=== PATIENT | female | born 1935 | race Caucasian/White ===

== ENCOUNTER 2016-08-16 08:43 | Outpatient (CLI) | payer MEDICARE, OTHER ==
[2013-10-11 15:32] VITALS: BP 156/78
[~2016-08-16 08:43] MED LIST: BUPIVACAINE HCL/EPINEPHRINE/PF 0.25% VIAL IM ONE; BUPIVACAINE HCL/PF 2.5 MG/ML 10ML VIAL IV ONE; Lidocaine 1% 5ml(IM or SUTURE)(PAIN CLINIC) ONE; TRIAMCINOLONE ACETONID 40MG/ML VIAL ONE
--- NOTE | 2016-08-16 14:46 | HISTORY AND PHYSICAL REPORT ---
REFERRING PHYSICIAN: Dr. Angélica Dang Dear Dr. Dang: HISTORY OF PRESENT ILLNESS: I had the opportunity of seeing Patricia Augustine today as an outpatient at [facility]. As you are aware, Patricia is a delightful 80-year-old white female that I treated several years ago for neck pain and occipital neuralgia. At that time, she was living in [place], [place]. She has recently moved from [place], [place], and she has had return of cervicalgia, neck pain, and headaches. She tells me at that time that the cervical facets, which were done with sedation, with CT-guided occipital blocks were helpful at controlling her pain but it has now returned. 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 She is not on any blood thinners except for 81 mg of aspirin. PAST MEDICAL HISTORY: 1. History of frequent migraine headaches. 2. CVA. 3. TIA. 4. High cholesterol. 5. Hypertension. 6. RA. 7. Irritable bowel. 8. Memory loss status post CVA. 9. Depression. 10. Chronic pain. PAST SURGICAL HISTORY: Right knee arthroscopy in 2012. CURRENT DAILY MEDICATIONS: 1. Bentyl 20 mg b.i.d. 2. Metoprolol 50 mg daily. 3. Lipitor 20 mg daily. 4. Topamax 100 mg daily. 5. Clonazepam 0.5 mg daily. 6. Vitamin D3, 5000 units daily. 7. Lactobacillus OTC daily. 8. Tramadol 100 mg p.o. every 4 hours p.r.n. 9. Lomotil b.i.d, p.r.n. 10. Oxybutynin 5 mg daily, p.r.n. 11. Claritin daily. ALLERGIES: 1. Remicade causing hives and tongue swelling. 2. Penicillin causing hives and vomiting. 3. Demerol causing hives and vomiting. 4. Savella causing ulcer. 5. Prilosec causing a cough and cardiac function problems. 6. Methotrexate causing hair loss. 7. Cipro, unknown reaction. 8. Amitriptyline causing over sedation. SOCIAL HISTORY: She has never smoked. She uses alcohol rarely. She denies recreational drug use. FAMILY HISTORY: Family history of heart disease. REVIEW OF SYSTEMS: In the past month or so, she reports a weight loss, feeling depressed, feeling anxious, and headaches. Her pain is worsened with weather changes and nothing seems to improve her pain. PHYSICAL EXAMINATION: Vital Signs: BP: 155/75, P: 68, R: 20, oxygen saturation is 98% on room air. General: The patient is well nourished, well developed, and in no apparent distress. Awake, alert, and oriented. HEENT: Pupils are equal, round, and reactive to light and accommodation. Extraocular movements intact. No facial droop. Neck: There is full range of motion of the cervical spine. No evidence of adenopathy. Thyroid is nontender, no enlarged. Carotids are without bruits. Chest: Clear to auscultation bilaterally. Normal. Chest excursion. Heart: Regular rate and rhythm without murmur. Abdomen: Benign. Normoactive bowel sounds. Motor/sensory: Intact in the upper and lower extremities. Moves all extremities freely. Strength is 5/5 and equal in the upper extremities. Back: There is limited range of motion of the cervical spine. There is reproducible tenderness over the occipital plane and the cervical facets. ASSESSMENT: Occipital neuralgia. PLAN: She has eaten this morning; and therefore, I am going to plan on repeating post- occipital blocks without sedation, and I will follow her up and consider cervical facet medial branch blocks with C2 ganglion if necessary. She is in agreement today and we will proceed. Dr. Dang, thank you very much for allowing me to take part in the care of this nice lady. I appreciate the opportunity to take part in the care of your patients. cc: Dr. Laurence ABRAMS
--- NOTE | 2016-08-16 14:57 | OCCIPITAL NB FLUORO ---
REFERRING PHYSICIAN: Dr. Angélica Dang PREOPERATIVE DIAGNOSIS: Occipital neuralgia. POSTOPERATIVE DIAGNOSIS: Occipital neuralgia. PROCEDURE: Bilateral post-occipital nerve blocks without sedation. DESCRIPTION OF PROCEDURE: The risks and benefits of the procedure were explained to the patient, including the risk of infection, bleeding, nerve injury and seizure. Furthermore, I discussed the risk of steroid exposure causing hyperglycemia, hypertension, osteoporosis, and increased infectious risks. The patient understood the risks and agreed to proceed. Consent was obtained. The patient was placed in the prone position on the procedure table and a sterile prep and drape were applied. A 1% lidocaine local anesthetic skin wheal was raised and at the insertion of the splenius capitis and semispinalis capitis, a 25-gauge needle was advanced to just inferior to the nuchal line with an injection of triamcinolone and lidocaine mixed with bupivacaine. In this exact same fashion, the procedure was then repeated on the contralateral side. The patient tolerated the procedure well. There were no apparent complications. She was discharged home in good condition. ASSESSMENT: Occipital neuralgia. PLAN: Bilateral post-occipital nerve blocks. FOLLOW UP: I will plan on following her up for possible facets. I would consider obtaining a new MRI study. Dr. Dang, thank you very much for allowing me to take part in the care of this nice lady. cc: Dr. Laurence ABRAMS
== END 2016-08-16 08:44 ==
LOC: OUT 08:43
PROVIDERS: ATTEND Anesthesiology Pain Medicine
DX: M54.81 Occipital neuralgia (principal)
CPT/HCPCS: J3301; J3490; 64450; 99214; G0463

== ENCOUNTER 2016-08-22 08:45 | Outpatient (CLI) | payer MEDICARE, OTHER ==
[2013-10-11 15:32] VITALS: BP 156/78
--- NOTE | 2016-08-22 13:39 | Diagnostic Imaging Report ---
DEMETRIUS CARPIO~ [facility] [address] [facility] [address] [place], [place]. [address] ~ ~ ~ ~ Report Submission Date: Aug 22, 2016 12:36:11 PM CDT Patient ~ Study Name: SISI MARTINEZ ~ Date: Aug 22, 2016 8:57:22 AM CDT ~ Modality Type: MR Gender: F ~ Description: MRI C SPINE W/O CONTRAST : 33 ~ Institution: [facility] Physician: DEMETRIUS CARPIO ~ ~ ~ ~ Magnetic resonance imaging of the cervical spine without contrast History: Posterior neck pain Findings: Routine sagittal and axial images of the cervical spine are obtained without contrast. No comparisons are available. The bone marrow signal is normal. Age appropriate brain atrophy is noted. The cervicomedullary junction and cervical spinal cord exhibit normal signal. Craniocervical junction: Unremarkable. C1/C2: Mild bilateral facet arthropathy. C2/C3: Moderate left facet arthropathy. C3/4: Moderate left facet arthropathy C4/C5: Moderate right and mild left facet arthropathy, minimal posterior disc bulging, and negligible degenerative anterolisthesis. C5/C6: Mild disc space narrowing, moderate posterior disc osteophyte complex formation, mild left facet arthropathy, bilateral uncovertebral spurring, bilateral foraminal stenosis, central canal stenosis, and mild cord impingement. C6/C7: Moderate disc space narrowing, moderate posterior disc osteophyte complex formation, minimal degenerative retrolisthesis, left greater than right uncovertebral spurring, broad based posterior central disc protrusion, bilateral foraminal stenosis, central canal stenosis, and cord impingement. There may be a small posterior central disc extrusion with slight caudad migration. C7/T1: Moderate left facet arthropathy. Impression: 1. Moderate C5/C6 spondylosis with bilateral foraminal stenosis, central canal stenosis, and cord impingement. 2. Moderate C6/C7 spondylosis with bilateral foraminal stenosis, central canal stenosis, cord impingement, and possibly a small posterior central disc extrusion. 3. Additional mild multilevel spondylosis as described. ~ Electronically signed on Aug 22, 2016 12:36:11 PM CDT by: Tavon ABRAMS
== END 2016-08-22 08:46 ==
LOC: RAD 08:45
PROVIDERS: ATTEND Anesthesiology Pain Medicine
DX: M54.2 Cervicalgia (principal)
CPT/HCPCS: 72141

== ENCOUNTER 2016-09-13 08:44 | Outpatient (CLI) | payer MEDICARE, OTHER ==
[2013-10-11 15:32] VITALS: BP 156/78
[~2016-09-13 08:44] MED LIST changes: +0.9 % SODIUM CHLORIDE PF 10 ML VIAL IJ ONE; -BUPIVACAINE HCL/EPINEPHRINE/PF 0.25% VIAL IM ONE; -BUPIVACAINE HCL/PF 2.5 MG/ML 10ML VIAL IV ONE
--- NOTE | 2016-09-14 12:09 | CERVICAL ESI WITH FLUORO ---
REFERRING PHYSICIAN: Dr. Angélica Dang SUBJECTIVE: I had the opportunity of following up with Patricia Luna today as an outpatient at [facility] [place] [facility]. This is a very nice 81-year-old white female who presented with neck pain and occipital neuralgia. MRI was performed of the cervical spine at [facility] [place] [facility] on August 22, and it is significant for multi-level cervical spondylosis and C5-C6 and C6-C7 cervical stenosis causing impingement of the cervical cord. She does not have sylvia neurogenic claudication symptoms in her arms, however, she does have neck pain and headache. She said the headache resolved with a simple post-occipital block but it is now reoccurring. The neck pain never improved. Her range of motion as I examine her today is somewhat limited but fairly normal and I am going to plan on placing a palliative cervical epidural steroid injection at C7- T1. I will follow her up in a month and see how she does. If she is not getting significant improvement, I would consider performing a facet medial branch blocks and a C2 ganglion injection. However, I think this is a product of the cervical stenosis. Plan today for a cervical epidural steroid injection with fluoroscopy. PROCEDURE: Left C7-T1 epidural steroid injection with fluoroscopic guidance. DESCRIPTION OF PROCEDURE: The risks and benefits were discussed with the patient, including the risks of infection, bleeding, nerve injury including paralysis, and headache. Furthermore , I discussed the risk of steroid exposure causing hyperglycemia, hypertension, osteoporosis, or increased infectious risks. The patient understood these risks and agreed to proceed. Consent was obtained. The patient was placed prone on the fluoroscopy table with a pillow underneath the chest to afford slight anterior flexion of the cervical spine. The patient' s back of the neck was cleaned and a sterile drape was applied. A 20-gauge thin-wall Tuohy epidural needle was inserted with a left paramedian approach at the C7-T1 level. The position of the needle was verified with AP and lateral fluoroscopic views. The needle was advanced with a normal saline yjbn-uv-cpnawogcpe technique until zsst-na-iprucuoxou was obtained. On obtaining gvbn-sp-gyttlqtbbf to normal saline it was verified that there was no aspiration of CSF or blood. At this point, Omnipaque 240 myelogram dye was injected into the cervical epidural space. It was verified with fluoroscopic views that the dye was located within the epidural space in the desired distribution. Triamcinolone acetate and 1% lidocaine was injected into the cervical epidural space. The stylet was replaced in the needle and the needle was removed from the neck. The neck was cleaned free and a bandage was applied over the injection site. Bilateral post-occipital blocks were then performed with triamcinolone and 1% lidocaine mixed with preservative-free saline. The patient tolerated the procedure well and was monitored afterwards for a total of 20 minutes during which time the vital signs remained stable and no adverse sequelae were experienced. The patient was discharged home in good condition. Prior to discharge the patient was given discharge instructions. ASSESSMENT: Cervical intervertebral disk disorder. PLAN: Left C7-T1 epidural steroid injection with fluoroscopic guidance. FOLLOW UP: Follow up in 1 month. cc: Dr. Angélica ABRAMS
== END 2016-09-13 08:45 ==
LOC: OUT 08:44
PROVIDERS: ATTEND Anesthesiology Pain Medicine
DX: M50.33 Other cervical disc degeneration, cervicothoracic region (principal)
CPT/HCPCS: J3301; Q9966; 99213; G0463

== ENCOUNTER 2016-09-30 13:10 | Outpatient (CLI) | payer MEDICARE, OTHER ==
[2013-10-11 15:32] VITALS: BP 156/78
== END 2016-09-30 13:11 ==
LOC: LAB 13:10
PROVIDERS: ATTEND Family Medicine
DX: E55.9 Vitamin D deficiency, unspecified (principal)
CPT/HCPCS: 36415; 82306

== ENCOUNTER 2016-10-11 08:07 | Outpatient (CLI) | payer MEDICARE, OTHER ==
[2013-10-11 15:32] VITALS: BP 156/78
--- NOTE | 2016-10-12 10:46 | PAIN CLINIC PROGRESS NOTES ---
REFERRING PHYSICIAN: Dr. Angélica Dang REASON FOR VISIT: I had the opportunity of following up with Patricia RyanBailey today at [facility] [place] [facility]. This is a delightful 81-year-old white female who presented with neck pain, cervicalgia, and occipital neuralgia. MRI revealed a cervical C5-C6 and C6-C7 spondylosis and stenosis and impinging on the spinal cord. I gave her a left C7-T1 epidural steroid injection with bilateral occipital blocks and her symptoms have resolved. She says she has not had any further neck pain or headache and doing quite well. ASSESSMENT: 1. C5-C6 and C6-C7 cervical spondylosis and stenosis. 2. Occipital neuralgia. PLAN: I have spoken with her and her daughter about the underlying pathology and that she should avoid prolonged overhead work, including lifting and twisting. I will see her back if her symptoms should worsen or reoccur. cc: Dr. Angélica ABRAMS
== END 2016-10-11 08:08 ==
LOC: OUT 08:07
PROVIDERS: ATTEND Anesthesiology Pain Medicine
DX: M47.812 Spondylosis without myelopathy or radiculopathy, cervical region (principal); M48.02 Spinal stenosis, cervical region; M54.81 Occipital neuralgia
CPT/HCPCS: 99214; G0463

== ENCOUNTER 2017-01-04 07:55 | Outpatient (CLI) | payer MEDICARE, OTHER ==
[2013-10-11 15:32] VITALS: BP 156/78
[2017-01-04 08:38] LABS: eGFR (African) > 60; eGFR (Non-African) > 60
== END 2017-01-04 07:56 ==
LOC: LAB 07:55
PROVIDERS: ATTEND Family Medicine
DX: E78.2 Mixed hyperlipidemia (principal)
CPT/HCPCS: 36415; 80053; 80061

== ENCOUNTER 2017-04-26 14:06 | Outpatient (CLI) | payer MEDICARE, OTHER ==
[2013-10-11 15:32] VITALS: BP 156/78
[~2017-04-26 14:06] MED LIST changes: +BUPIVACAINE HCL/PF 2.5 MG/ML 10ML VIAL IV ONE
--- NOTE | 2017-04-27 14:00 | CERVICAL ESI WITH FLUORO ---
SUBJECTIVE: I had the opportunity of following up with Patricia Augustine today as an outpatient at [facility]. This is a delightful 81-year- old white female whom I treated last October for neck pain. She said that she did very well after a cervical epidural steroid injection with trigger points at the post occiput. She said she started doing exercises for arthritis and her symptoms are now reoccurring and that she has constant neck pain, headaches, and cannot get out of bed. She has a history of cervical degenerative disk disease and disk protrusion. I plan to day to repeat a C7-T1 epidural steroid injection with post occipital trigger point block and see how she does. She is in agreement today and we will proceed. PROCEDURE: Left C7-T1 epidural steroid injection with post occipital trigger point block under fluoroscopic guidance. DESCRIPTION OF PROCEDURE: The risks and benefits were discussed with the patient, including the risks of infection, bleeding, nerve injury including paralysis, and headaches. Furthermore, I discussed the risk of steroid exposure causing hyperglycemia, hypertension, osteoporosis, or increased infectious risks. The patient understood these risks and agreed to proceed. Consent was obtained. The patient was placed prone on the fluoroscopy table with a pillow underneath the chest to afford slight anterior flexion of the cervical spine. The patient' s back of the neck was cleaned and a sterile drape was applied. A 23-gauge thin-wall Tuohy epidural needle was inserted with a left paramedian approach at the C7-T1 interspace level. The position of the needle was verified with AP and lateral fluoroscopic views. The needle was advanced with a normal saline qmxp-pd-dxfkuszlii technique until ktym-ff-nktkbammqj was obtained. On obtaining eyqc-yc-ieblnmittv to normal saline it was verified that there was no aspiration of CSF or blood. Omnipaque 240 myelogram dye was injected into the cervical epidural space. It was verified with fluoroscopic views that the dye was located within the epidural space in the desired distribution. At this point , the medication was injected into the cervical epidural space. The stylet was replaced in the needle and the needle was removed from the neck. SECOND PROCEDURE: Following this, attention was then directed to the post occipital muscles and a local anesthetic block with 20 mg triamcinolone and 2 mL of 1% lidocaine mixed with Bupivacaine was placed bilaterally at the occipital margins at the nuchal line. The neck was cleaned and a bandage was applied over the injection site. The patient tolerated the procedure well and was monitored afterwards for a total of 20 minutes during which time the vital signs remained stable and no adverse sequelae were experienced. The patient was discharged home in good condition. Prior to discharge the patient was given discharge instructions. ASSESSMENT: 1. Cervical stenosis. 2. Post occipital pain. PLAN: Left C7-T1 epidural steroid injection with post occipital trigger point block under fluoroscopic guidance. FOLLOW UP: Return to clinic if problems develop or worsen. cc: Dr. Angélica ABRAMS
== END 2017-04-26 14:07 ==
LOC: OUT 14:06
PROVIDERS: ATTEND Anesthesiology Pain Medicine
DX: M48.02 Spinal stenosis, cervical region (principal); G58.8 Other specified mononeuropathies
CPT/HCPCS: 64450; 64479; 99214; G0463; J3301; J3490; Q9966

== ENCOUNTER 2017-05-04 14:56 | Inpatient (IN) | payer MEDICARE, OTHER ==
[2017-05-04] MEDS: ENOXAPARIN SODIUM 40 MG/0.4 ML DISP.SYRIN SQ SCH (18:06)
[2017-05-04 18:09] VITALS: BMI 20.6
--- NOTE | 2017-05-04 20:18 | History and Physical Report ---
History of Present Illnes - History of Present Illness Reason for Visit: Weakness History of Present Illness: Patient admitted from [facility] for SNF treatment of her weakness. She was admitted to [facility] with near syncopal episodes. Patient reports she was diagnosed with "inner ear infection." CT, CTA and MRI of brain normal. She was noted to have some tachycardia - consult by Dr. Villegas said it was sinus tach and put her back on her normal home dose of beta amanda. She had an UTI that grew out pansensitive E. Coli. Also found to have CAP. She was treated with Doxycycline and Cefdinir. She thought she had food sticking sensation in her throat. EGD normal but had dilatation anyway. Patient had reported allergy to rantidine and omeprazole so she was started on carafate. - Past Medical History Cardiac: CAD, HTN, [place], Hyperlipidemia, Other (LBBB) [employer]: CVA (see HPI), Migraine, Other (Tremor) Rheumatologic: Rheumatoid arthritis - Past Surgical History Past Surgical History: None - Past Family History Mother Family History: CAD, CVA, Father Family History: CAD, CVA, Brother 1 Family History: CAD Sister 1 Family History: CAD - Past Social History Smoke: No Alcohol: None Drugs: None Lives: With Family ( in [facility]) - Health Maintenance Health Maintenance: Influenza Vaccine, Pneumococcal Vaccine, Mammogram, Other ( zostavax) Influenza Vaccine: Current for this Influenza Season Pneumonia Vaccine: Yes Resuscitation Status: Resusciation Status Resuscitation Status Full Code Review of Systems - Review of Systems Constitutional: Weakness. negative: Fever Eyes: negative: pain ENT: negative: Ear Pain Respiratory: negative: Cough, Shortness of Breath Cardiovascular: negative: Chest Pain Gastrointestinal: negative: Nausea, Vomiting, Abdominal Pain Genitourinary: negative: Dysuria Musculoskeletal: negative: Neck Pain Skin: negative: Rash Neurological: Weakness - Medications/Allergies Allergies/Adverse Reactions: Allergies Allergy/AdvReac Type Severity Reaction Status Date / Time gabapentin Allergy Mild Unverified 01/03/17 09:29 ciprofloxacin HCl Allergy Verified 09/27/13 14:27 [From Cipro] divalproex sodium Allergy Verified 09/27/13 14:27 [From Depakote] erythromycin base Allergy Verified 09/27/13 14:27 [Erythromycin Base] infliximab [From Remicade] Allergy Verified 09/27/13 14:27 methotrexate Allergy Verified 09/27/13 14:27 metronidazole [From Flagyl] Allergy Verified 09/27/13 14:27 milnacipran HCl Allergy Verified 09/27/13 14:27 [From Savella] naproxen sodium [From Aleve] Allergy Verified 09/27/13 14:27 omeprazole [From Prilosec] Allergy Verified 09/27/13 14:27 Penicillins Allergy Verified 09/27/13 14:27 ranitidine HCl [From Zantac] Allergy Verified 09/27/13 14:27 valproic acid Allergy Verified 05/04/17 17:55 sertraline Allergy Uncoded 05/04/17 17:56 Home Medications: Home Medications Aspirin [Adult Low Dose Aspirin EC] 81 mg PO DAILY 05/04/17 Current Inpatient Medications: Current Inpatient Medications Enoxaparin Sodium (Lovenox) 40 mg SQ QD ORION Stop: 05/18/17 16:59 Last Admin: 05/04/17 18:06 Dose: 40 mg Exam - Exam Vital Signs: Vital Signs (72 hours) 05/04/17 16:11 Temperature 97.9 F Pulse Rate [ 64 Pulse ox] Respiratory 18 Rate Blood Pressure 131/57 [Right Arm] O2 Sat by Pulse 97 Oximetry General: Alert, Oriented to Person, Oriented to Place, Oriented to Time, Cooperative, No acute distress HEENT: Atraumatic, PERRLA, EOMI Neck: Normal Range of Motion Lungs: Clear to auscultation, Normal air movement, Speaks full Sentences Cardiovascular: Regular rate Abdomen: Normal bowel sounds, Soft, No tenderness Integumentary: Normal Extremities: No edema Neurological: Generalized Weakness Psych/Mental Status: Mental status NL, Mood NL, Appropriate Affect, Intact Judgment Assessment/Plan - Assessment/Plan (1) Weakness Status: Acute Current Visit: Yes Plan: Plan to admit patient to SNF for PT and OT. Lovenox for DVT prevention until up moving more. (2) Pneumonia Status: Acute Current Visit: Yes Qualifiers: Pneumonia type: due to unspecified organism Laterality: unspecified laterality Lung location: unspecified part of lung Qualified Code(s): J18.9 - Pneumonia, unspecified organism Plan: Patient to finish doxycycline and cefdinir tonight. (3) HTN (hypertension) Status: Chronic Current Visit: No Qualifiers: Hypertension type: essential hypertension Qualified Code(s): I10 - Essential (primary) hypertension Plan: Stable. (4) GERD without esophagitis Status: Acute Current Visit: Yes Plan: Stable. (5) CAD (coronary artery disease) Status: Chronic Current Visit: No Qualifiers: Coronary Disease-Associated Artery/Lesion type: [place] artery [place] vs. transplanted heart: [place] heart Associated angina: without angina Qualified Code(s): I25.10 - Atherosclerotic heart disease of [place] coronary artery without angina pectoris Assessment: Stable. VTE Assessment - RISK FACTOR SCORE VTE RISK FACTOR SCORES: AGE OVER 60 YEARS - RISK VTE LOW RISK: SCORE OF 1 OR LESS (RISK PROXIMAL DVT 0.4%) NO PROPHYLAXIS NEEDED
[2017-05-04] MEDS ORDERED: DOXYCYCLINE MONOHYDRATE 100 MG CAPSULE PO ONE (20:46)
[2017-05-04] MEDS ORDERED: TOPIRAMATE 100 MG PO SCH (21:00)
[2017-05-04] MEDS ORDERED: DICYCLOMINE HCL 20 MG TABLET PO SCH (21:00)
[2017-05-04] MEDS ORDERED: CEFDINIR 300 MG CAPSULE PO SCH (21:00)
[2017-05-04] MEDS ORDERED: DIPHENOXYLATE HCL/ATROPINE 1 EACH TABLET PO PRN (21:00)
[2017-05-04] MEDS: SUCRALFATE 1 GM TABLET PO SCH (21:19)
[2017-05-04] MEDS: TOPIRAMATE 50 MG TABLET PO SCH (21:19)
[2017-05-05] MEDS: SUCRALFATE 1 GM TABLET PO SCH ×4 (08:34→19:28)
[2017-05-05] MEDS: DICYCLOMINE HCL 20 MG TABLET PO PRN (08:35)
[2017-05-05] MEDS: TOPIRAMATE 50 MG TABLET PO SCH ×2 (08:36→19:28)
[2017-05-05] MEDS: HYDROXYZINE HCL 25 MG TABLET PO PRN ×2 (08:36→20:56)
[2017-05-05] MEDS: METOPROLOL SUCCINATE 50 MG TAB.ER.24H PO SCH (08:36)
[2017-05-05] MEDS: OXYBUTYNIN CHLORIDE 5 MG TABLET PO SCH ×3 (08:36→17:40)
[2017-05-05] MEDS ORDERED: Non-Formulary 1 EACH (Atorvastatin Calcium [Atorvastatin Calcium] 20 MG) PO SCH (09:00)
[2017-05-05] MEDS: ENOXAPARIN SODIUM 40 MG/0.4 ML DISP.SYRIN SQ SCH (17:41)
[2017-05-06] MEDS: SUCRALFATE 1 GM TABLET PO SCH ×4 (06:37→20:30)
[2017-05-06] MEDS: OXYBUTYNIN CHLORIDE 5 MG TABLET PO SCH ×3 (08:28→17:09)
[2017-05-06] MEDS: TOPIRAMATE 50 MG TABLET PO SCH ×2 (08:29→20:30)
[2017-05-06] MEDS: METOPROLOL SUCCINATE 50 MG TAB.ER.24H PO SCH (08:29)
[2017-05-06] MEDS: POLYETHYLENE GLYCOL 3350 17 GM POWD.PACK PO SCH (12:31)
[2017-05-06] MEDS: ENOXAPARIN SODIUM 40 MG/0.4 ML DISP.SYRIN SQ SCH (17:06)
[2017-05-07] MEDS: SUCRALFATE 1 GM TABLET PO SCH ×4 (06:09→19:40)
[2017-05-07] MEDS: OXYBUTYNIN CHLORIDE 5 MG TABLET PO SCH ×3 (09:20→18:31)
[2017-05-07] MEDS: TOPIRAMATE 50 MG TABLET PO SCH ×2 (09:21→19:40)
[2017-05-07] MEDS: METOPROLOL SUCCINATE 50 MG TAB.ER.24H PO SCH (09:21)
[2017-05-07] MEDS: HYDROXYZINE HCL 25 MG TABLET PO PRN (10:55)
[2017-05-07] MEDS: POLYETHYLENE GLYCOL 3350 17 GM POWD.PACK PO SCH (11:01)
[2017-05-07] MEDS: traMADol HCL 50 MG TABLET PO PRN (13:16)
[2017-05-07] MEDS: ENOXAPARIN SODIUM 40 MG/0.4 ML DISP.SYRIN SQ SCH (16:49)
[2017-05-07] MEDS: DICYCLOMINE HCL 20 MG TABLET PO PRN (19:39)
[2017-05-08] MEDS: traMADol HCL 50 MG TABLET PO PRN ×2 (02:20→21:42)
[2017-05-08] MEDS: SUCRALFATE 1 GM TABLET PO SCH ×4 (06:07→19:34)
[2017-05-08] MEDS: HYDROXYZINE HCL 25 MG TABLET PO PRN ×2 (06:29→19:34)
[2017-05-08] MEDS: TOPIRAMATE 50 MG TABLET PO SCH ×2 (08:40→19:33)
[2017-05-08] MEDS: OXYBUTYNIN CHLORIDE 5 MG TABLET PO SCH ×3 (08:40→17:32)
[2017-05-08] MEDS: METOPROLOL SUCCINATE 50 MG TAB.ER.24H PO SCH (08:40)
[2017-05-08] MEDS: POLYETHYLENE GLYCOL 3350 17 GM POWD.PACK PO SCH (10:55)
[2017-05-08] MEDS: ENOXAPARIN SODIUM 40 MG/0.4 ML DISP.SYRIN SQ SCH (17:32)
[2017-05-09] MEDS: SUCRALFATE 1 GM TABLET PO SCH ×4 (06:09→19:39)
[2017-05-09] MEDS: traMADol HCL 50 MG TABLET PO PRN (08:19)
[2017-05-09] MEDS: METOPROLOL SUCCINATE 50 MG TAB.ER.24H PO SCH (08:20)
[2017-05-09] MEDS: TOPIRAMATE 50 MG TABLET PO SCH ×2 (08:20→19:39)
[2017-05-09] MEDS: OXYBUTYNIN CHLORIDE 5 MG TABLET PO SCH ×3 (08:20→17:06)
[2017-05-09] MEDS: POLYETHYLENE GLYCOL 3350 17 GM POWD.PACK PO SCH (11:50)
[2017-05-09] MEDS: ENOXAPARIN SODIUM 40 MG/0.4 ML DISP.SYRIN SQ SCH (17:06)
[2017-05-10] MEDS: SUCRALFATE 1 GM TABLET PO SCH ×4 (06:03→19:30)
[2017-05-10] MEDS: traMADol HCL 50 MG TABLET PO PRN ×2 (07:34→18:30)
[2017-05-10] MEDS: TOPIRAMATE 50 MG TABLET PO SCH ×2 (09:24→19:30)
[2017-05-10] MEDS: METOPROLOL SUCCINATE 50 MG TAB.ER.24H PO SCH (09:24)
[2017-05-10] MEDS: OXYBUTYNIN CHLORIDE 5 MG TABLET PO SCH ×3 (09:24→17:16)
[2017-05-10] MEDS: POLYETHYLENE GLYCOL 3350 17 GM POWD.PACK PO SCH (11:59)
[2017-05-10] MEDS: ENOXAPARIN SODIUM 40 MG/0.4 ML DISP.SYRIN SQ SCH (17:16)
[2017-05-10] MEDS: HYDROXYZINE HCL 25 MG TABLET PO PRN (20:55)
[2017-05-11] MEDS: SUCRALFATE 1 GM TABLET PO SCH ×4 (06:24→19:50)
[2017-05-11] MEDS: METOPROLOL SUCCINATE 50 MG TAB.ER.24H PO SCH (08:39)
[2017-05-11] MEDS: TOPIRAMATE 50 MG TABLET PO SCH ×2 (08:39→19:50)
[2017-05-11] MEDS: OXYBUTYNIN CHLORIDE 5 MG TABLET PO SCH ×3 (08:39→17:15)
[2017-05-11] MEDS: traMADol HCL 50 MG TABLET PO PRN (08:40)
[2017-05-11] MEDS: POLYETHYLENE GLYCOL 3350 17 GM POWD.PACK PO SCH (11:43)
[2017-05-11] MEDS: ENOXAPARIN SODIUM 40 MG/0.4 ML DISP.SYRIN SQ SCH (17:15)
[2017-05-11] MEDS: HYDROXYZINE HCL 25 MG TABLET PO PRN (20:57)
[2017-05-12] MEDS: SUCRALFATE 1 GM TABLET PO SCH (06:04)
--- NOTE | 2017-05-12 08:01 | Discharge Summary ---
Discharge Summary - Discharge Sumary History of Present Illness: Patient admitted from [facility] for SNF treatment of her weakness. She was admitted to [facility] with near syncopal episodes. Patient reports she was diagnosed with "inner ear infection." CT, CTA and MRI of brain normal. She was noted to have some tachycardia - consult by Dr. Villegas said it was sinus tach and put her back on her normal home dose of beta amanda. She had an UTI that grew out pansensitive E. Coli. Also found to have CAP. She was treated with Doxycycline and Cefdinir. She thought she had food sticking sensation in her throat. EGD normal but had dilatation anyway. Patient had reported allergy to rantidine and omeprazole so she was started on carafate. Condition at Discharge: Stable Home Medications: Ambulatory Orders Medication Instructions Recorded Dicyclomine HCl [Bentyl] 20 mg PO BID 09/27/13 Topiramate [Topamax] 100 mg PO BID 09/27/13 Metoprolol Succinate [Toprol XL] 50 mg PO DAILY 05/04/17 traMADol HCL [Ultram] 50 mg PO Q6H PRN tablet 05/11/17 Consultations this Visit: None Procedures this Visit: None Allergies/Adverse Reactions: Allergies Allergy/AdvReac Type Severity Reaction Status Date / Time gabapentin Allergy Mild Verified 05/08/17 19:23 ciprofloxacin HCl Allergy Verified 05/08/17 19:23 [From Cipro] divalproex sodium Allergy Verified 05/08/17 19:23 [From Depakote] erythromycin base Allergy Verified 05/08/17 19:23 [Erythromycin Base] infliximab [From Remicade] Allergy Verified 05/08/17 19:23 methotrexate Allergy Verified 05/08/17 19:23 metronidazole [From Flagyl] Allergy Verified 05/08/17 19:23 milnacipran HCl Allergy Verified 05/08/17 19:23 [From Savella] naproxen sodium [From Aleve] Allergy Verified 05/08/17 19:23 omeprazole [From Prilosec] Allergy Verified 05/08/17 19:23 Penicillins Allergy Verified 05/08/17 19:23 ranitidine HCl [From Zantac] Allergy Verified 05/08/17 19:23 valproic acid Allergy Verified 05/08/17 19:23 sertraline Allergy Uncoded 05/08/17 19:23 Patient Problems: Current Active Problems Problem Status Onset GERD without esophagitis Acute Pneumonia Acute Weakness Acute Discharge Summary: Patient admitted to SNF after a stay at [facility] with syncope, pneumonia, and UTI. Did very well with PT/OT and returned to baseline. She had been started on carafate at [facility] for dysphagia after EGD normal but allergic to zantac and prilosec. She did well on this but did not want to continue as outpatient. Will watch her off it. She will continue therapies in the outpatient setting. Discharged home in good condition. Hospital Course: Discharge Dx: Weakness. Pneumonia. UTI. Dysphagia. Disp - home
[2017-05-12] MEDS: METOPROLOL SUCCINATE 50 MG TAB.ER.24H PO SCH (08:26)
[2017-05-12] MEDS: OXYBUTYNIN CHLORIDE 5 MG TABLET PO SCH (08:26)
[2017-05-12] MEDS: TOPIRAMATE 50 MG TABLET PO SCH (08:27)
[2017-05-12] MEDS: traMADol HCL 50 MG TABLET PO PRN (08:30)
[2017-05-12 10:23] VITALS: BP 136/60
== END 2017-05-12 09:45 | disposition home or self-care (01) | DRG 947 ==
LOC: SOUTH 14:56
PROVIDERS: ADMIT Family Medicine; ATTEND Family Medicine
DX: R53.1 Weakness (principal); J18.9 Pneumonia, unspecified organism; I10 Essential (primary) hypertension; I25.10 Atherosclerotic heart disease of native coronary artery without angina pectoris; K21.9 Gastro-esophageal reflux disease without esophagitis
CPT/HCPCS: 97110; 97112; 97116; 97161; 97165; 97530; 97535; J1650; J3490

== ENCOUNTER 2017-08-23 14:29 | Outpatient (CLI) | payer MEDICARE, OTHER ==
[2017-08-23 14:57] LABS: BASOPHILS % 0.4 (0.0-1.5); MEAN CORPUSCULAR HEMOGLOBIN 32.1 pg (28.0-34.0); MEAN CORPUSCULAR VOLUME 98.8 fl (80.0-100.0); NEUTROPHILS # 4.4 # k/uL (1.4-7.7)
[2017-08-23 15:23] LABS: eGFR (African) > 60; eGFR (Non-African) > 60
--- NOTE | 2017-08-23 15:33 | Diagnostic Imaging Report ---
LISA SCHILLING [facility] [address] [facility] [address] [place], [place]. [address] Report Submission Date: Aug 23, 2017 3:31:42 PM CDT Patient Study Name: SISI MARTINEZ Date: Aug 23, 2017 3:06:22 PM CDT Modality Type: CT\SR Gender: F Description: CT HEAD W/O CONTRAST : 31 Institution: [facility] Physician: LISA SCHILLING Examination: CT head without contrast History: LIGHT HEADED X 7 DAYS PRIOR HX OF STROKE AND TIAS (Hx) / LIGHT HEADED ( DICOM Hx) Comparison exam: None available Technique: Noncontrast head CT protocol. Findings: Ventricles and sulci are prominent. Cerebrocerebellar parenchyma demonstrates periventricular low attenuation consistent with small vessel disease. Large low attenuation region involving the left frontal and parietal lobes. No evidence for parenchymal hemorrhage. No evidence for mass or mass effect. No midline shift. No extra axial fluid collections. Partial visualization of the paranasal sinuses, mastoid air cells, orbits, skull and scalp without gross irregularity. Impression: Age related changes. 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 No acute parenchymal process. No hemorrhage. Correlation with older studies recommended, if available, to confirm stability of the presumed age related parenchymal changes. Electronically signed on Aug 23, 2017 3:31:42 PM CDT by: Octavio ABRAMS
== END 2017-08-23 14:30 ==
LOC: LAB 14:29
PROVIDERS: ATTEND Family Medicine
DX: R42 Dizziness and giddiness (principal); R82.90 Unspecified abnormal findings in urine
CPT/HCPCS: 36415; 70450; 80053; 85025; 87086

== ENCOUNTER 2018-04-04 08:00 | Outpatient (CLI) | payer MEDICARE, OTHER ==
[2018-04-04] MEDS ORDERED: 0.9 % SODIUM CHLORIDE PF 10 ML VIAL IJ ONE (08:30)
[2018-04-04] MEDS ORDERED: TRIAMCINOLONE ACETONID 40MG/ML VIAL ONE (08:30)
[2018-04-04] MEDS ORDERED: LIDOCAINE HCL/PF 2% 100 MG/5 ML VIAL IJ ONE (08:30)
--- NOTE | 2018-04-05 09:31 | CERVICAL ESI WITH FLUORO ---
SUBJECTIVE: I had the opportunity of following up with Margaret Augustine today as an outpatient in clinic. This is a patient with cervical degenerative disc disease, stenosis, neck pain, and headaches that I have treated with a cervical epidural steroid injection in April of 2017. She had some trigger points in the post occipital area. She had complete 100% relief of her cervicalgia, neck pain, and headaches. Symptoms are beginning to return with pain radiating to her shoulders bilaterally, worse on the left than the right. PROCEDURE: Left C7-T1 epidural steroid injection with fluoroscopic guidance. DESCRIPTION OF PROCEDURE: The risks and benefits were discussed with the patient, including the risks of infection, bleeding, nerve injury including paralysis, and headache. Furthermore, I discussed the risk of steroid exposure causing hyperglycemia, hypertension, osteoporosis, or increased infectious risks. The patient understood these risks and agreed to proceed. Consent was obtained. The patient was placed prone on the fluoroscopy table with a pillow underneath the chest to afford slight anterior flexion of the cervical spine. The patient's back of the neck was cleaned and a sterile drape was applied. An epidural needle was inserted with a left paramedian approach at the C7-T1 interspace level. The position of the needle was verified with AP and lateral fluoroscopic views. The needle was advanced with a normal saline [id number]-[id number] technique until [id number] was obtained. On obtaining [id number] to normal saline it was verified that there was no aspiration of CSF or blood. Omnipaque 240 myelogram dye was injected into the cervical epidural space. It was verified with fluoroscopic views that the dye was located within the epidural space in the desired distribution. At this point, the medication was injected into the cervical epidural space. The stylet was replaced in the needle and the needle was removed from the neck. The neck was cleaned and a bandage was applied over the injection site. The patient tolerated the procedure well and was monitored afterwards for a total of 20 minutes during which time the vital signs remained stable and no adverse sequelae were experienced. The patient was discharged home in good condition. Prior to discharge the patient was given discharge instructions. ASSESSMENT: 1. Cervical radiculitis. 2. Cervical stenosis with neurogenic claudication. 3. Occipital neuralgia. PLAN: Left C7-T1 epidural steroid Injection with fluoroscopic guidance today. FOLLOW UP: Return to Clinic if problems develop or worsen. cc: Dr. Angélica ABRAMS
== END 2018-04-04 08:03 ==
LOC: OUT 08:00
PROVIDERS: ATTEND Anesthesiology Pain Medicine
DX: M54.12 Radiculopathy, cervical region (principal); M48.02 Spinal stenosis, cervical region; M54.81 Occipital neuralgia
CPT/HCPCS: J2001; J3301; 62321; 99213; G0463

== ENCOUNTER 2018-05-23 08:30 | Outpatient (CLI) | payer MEDICARE, OTHER ==
--- NOTE | 2018-06-02 13:43 | PAIN CLINIC PROGRESS NOTES ---
REASON FOR VISIT: Patricia follows up. She has a history of severe spinal stenosis at primarily C6-C7 and disc herniation at C5-C6 on an exam from 5 years ago in 2013. I treated her for spinal stenosis. She is much better. She is complaining of some right-sided clicking in her jaw. I examined her today and it is primarily TMJ. I have told her that she should avoid high velocity chiropractic manipulation and that we could consider obtaining a new MRI study. ASSESSMENT: Cervical stenosis with radiculopathy, now resolved. PLAN: At this point, I do not recommend any further treatment as her stenosis symptoms have resolved. cc: Dr. Angélica ABRAMS
== END 2018-05-23 09:30 ==
LOC: OUT 08:30
PROVIDERS: ATTEND Anesthesiology Pain Medicine
DX: M48.02 Spinal stenosis, cervical region (principal); M54.12 Radiculopathy, cervical region
CPT/HCPCS: 99212; G0463

== ENCOUNTER 2018-09-20 13:54 | Outpatient (CLI) | payer MEDICARE, OTHER ==
[2018-09-20 14:13] LABS: MEAN CORPUSCULAR HEMOGLOBIN 32.2 pg (28.0-34.0)
[2018-09-20 14:14] LABS: BASOPHILS % 0.5 % (0.0-1.5); EOSINOPHILS % 3.3 % (0.0-6.8); MONOCYTES % 5.6 % (0.0-11.0); NEUTROPHILS # 3.6 # k/uL (1.4-7.7)
[2018-09-20 14:34] LABS: eGFR (Non-African) > 60
== END 2018-09-20 13:55 ==
LOC: LAB 13:54
PROVIDERS: ATTEND Family Medicine
DX: E78.2 Mixed hyperlipidemia (principal); R42 Dizziness and giddiness
CPT/HCPCS: 36415; 80053; 80061; 85025

== ENCOUNTER 2019-02-13 15:51 | Observation (INO) | payer MEDICARE, OTHER ==
[2019-02-13 16:30] VITALS: BMI 21.2
--- NOTE | 2019-02-13 17:43 | History and Physical Report ---
History of Present Illnes - History of Present Illness Reason for Visit: hypertension History of Present Illness: 83-year-old white female who stated over the last several weeks she is been having increasing blood pressure problems. Patient stated she is been having pain in the temporal area of her forehead from time to time. When she had checked her blood pressure at home it is been running 180-120/90's-100. Patient has been having some intermittent chest pain during that time. Patient states the pain does not seem to be precipitated or modified by any factors. Pain usually lasted just seconds and then dissipates. Patient denies any diaphoresis her shortness of breath associated with it. Patient stated she has been taking her metoprolol as prescribed. Patient also states she is been having some slight blurred vision from time to time. Is not sure if his associated with the elevate d blood pressure or not. Patient stated she had not been feeling well and does feel weak. patient will be admitted to the hospital for further control her blood pressure. Will go ahead and get an EKG and troponin to check for possible coronary artery disease ischemia. 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 [employer]: CVA (see HPI), Migraine, Other (Tremor) Rheumatologic: Rheumatoid arthritis - Past Surgical History Past Surgical History: None - Past Social History Smoke: No Occupation: retired Alcohol: None Drugs: None Lives: With Family ( in [facility]) Domestic Violence: Negative - Health Maintenance Health Maintenance: Influenza Vaccine, Pneumococcal Vaccine, Mammogram, Other (zostavax) Influenza Vaccine: No Pneumonia Vaccine: Yes Resuscitation Status: Resusciation Status Resuscitation Status Do Not Resuscitate - Unable to Obtain History Unable to Obtain: No Review of Systems - Review of Systems Constitutional: Weakness. negative: Fever, Chills Eyes: vision change ENT: negative: Ear Pain, Ear Discharge, Nose Pain, Nose Discharge, Nose Congestion, Mouth Swelling Respiratory: negative: Cough, Dry, Shortness of Breath, Hemoptysis, SOB with Excertion, Pleuritic Pain Cardiovascular: Chest Pain (last for seconds). negative: Palpitations, Orthopnea, Edema, Light Headedness Gastrointestinal: negative: Nausea, Vomiting, Abdominal Pain, Diarrhea, Constipation, Melena, Hematochezia Genitourinary: negative: Dysuria, Frequency, Incontinence Musculoskeletal: negative: Back Pain Skin: negative: Rash Neurological: Weakness. negative: Numbness, Incoordination, Change in Speech, Confusion, Seizures - Medications/Allergies Allergies/Adverse Reactions: Allergies Allergy/AdvReac Type Severity Reaction Status Date / Time gabapentin Allergy Mild Verified 05/08/17 19:23 ciprofloxacin HCl Allergy Verified 05/08/17 19:23 [From Cipro] divalproex sodium Allergy Verified 05/08/17 19:23 [From Depakote] erythromycin base Allergy Verified 05/08/17 19:23 [Erythromycin Base] infliximab [From Remicade] Allergy Verified 05/08/17 19:23 methotrexate Allergy Verified 05/08/17 19:23 metronidazole [From Flagyl] Allergy Verified 05/08/17 19:23 milnacipran HCl Allergy Verified 05/08/17 19:23 [From Savella] naproxen sodium [From Aleve] Allergy Verified 05/08/17 19:23 omeprazole [From Prilosec] Allergy Verified 05/08/17 19:23 Penicillins Allergy Verified 05/08/17 19:23 ranitidine HCl [From Zantac] Allergy Verified 05/08/17 19:23 sertraline Allergy Verified 02/13/19 22:14 valproic acid Allergy Verified 05/08/17 19:23 Home Medications: Home Medications Aspirin [Jesus] 81 mg PO DAILY 02/13/19 Cholecalciferol (Vitamin D3) [Vitamin D3] 5,000 unit PO DAILY 02/13/19 Trazodone HCl 50 mg PO HS 02/13/19 Current Inpatient Medications: Current Inpatient Medications Atorvastatin Calcium (Lipitor) 20 mg PO DAILY ORION Stop: 03/16/19 17:59 Dicyclomine HCl (Bentyl) 20 mg PO qid prn ORION Stop: 03/15/19 17:59 Hydrochlorothiazide (Hydrodiuril) 25 mg PO DAILY ORION Stop: 03/15/19 17:59 Meclizine HCl (Antivert) 25 mg PO q8hr prn dizziness ORION Stop: 03/15/19 17:59 Meloxicam (Mobic) 15 mg PO DAILY ORION Stop: 03/16/19 08:59 Metoprolol Succinate (Toprol Xl) 50 mg PO DAILY ORION Stop: 03/16/19 08:59 Topiramate (Topamax) 100 mg PO HS ORION Stop: 03/15/19 20:59 Exam - Exam Vital Signs: Vital Signs (72 hours) 02/13/19 15:58 Temperature 98.4 F Pulse Rate [ 63 Pulse ox] Respiratory 18 Rate Blood Pressure 168/75 [Left Arm] O2 Sat by Pulse 96 Oximetry General: Alert, Oriented to Person, Oriented to Place, Oriented to Time, Cooperative, No acute distress HEENT: Atraumatic, PERRLA, EOMI, Mouth Mucous membr. moist/[place], Nose Mucous membr. moist/[place] Neck: Normal Range of Motion Carotids: WNL Thyroid: WNL Lungs: Clear to auscultation, Normal air movement, Speaks full Sentences Cardiovascular: Regular rate, Normal S1, Normal S2, No murmurs Abdomen: Normal bowel sounds, Soft, No tenderness, No hepatospenomegaly, No masses Integumentary: Normal, [place], Warm, Dry Extremities: No clubbing, No cyanosis, No edema, Normal pulses, No tenderness/swelling Neurological: Normal gait, Normal speech, Strength Equal Bilat, Normal tone, Sensation intact, Cranial nerves 3-12 NL, Reflexes 2+ Psych/Mental Status: Mental status NL, Mood NL, Appropriate Affect, Intact Judgment Assessment/Plan - Assessment/Plan (1) CAD (coronary artery disease) Status: Chronic Current Visit: No Qualifiers: Coronary Disease-Associated Artery/Lesion type: [place] artery [place] vs. transplanted heart: [place] heart Associated angina: without angina Qualified Code(s): I25.10 - Atherosclerotic heart disease of [place] coronary artery without angina pectoris (2) HTN (hypertension) Status: Chronic Current Visit: No Qualifiers: Hypertension type: essential hypertension Qualified Code(s): I10 - Essential (primary) hypertension VTE Assessment - RISK FACTOR SCORE VTE RISK FACTOR SCORES: AGE OVER 60 YEARS - RISK VTE LOW RISK: SCORE OF 1 OR LESS (RISK PROXIMAL DVT 0.4%) NO PROPHYLAXIS NEEDED
[2019-02-13] MEDS ORDERED: MECLIZINE HCL 25 MG TABLET PO PRN (18:00)
[2019-02-13] MEDS ORDERED: DICYCLOMINE HCL 20 MG TABLET PO PRN (18:00)
[2019-02-13] MEDS: hydroCHLOROthiazide 25 MG TABLET PO SCH (18:27)
[2019-02-13 18:31] LABS: BASOPHILS % 0.4 % (0.0-1.5); NEUTROPHILS # 3.6 # k/uL (1.4-7.7)
[2019-02-13 18:53] LABS: eGFR (Non-African) > 60
[2019-02-13] MEDS ORDERED: TOPIRAMATE 50 MG TABLET PO ONE (20:36)
[2019-02-13] MEDS ORDERED: TOPIRAMATE 50 MG TABLET PO SCH (21:00)
[2019-02-13] MEDS ORDERED: TOPIRAMATE 100 MG TABLET PO SCH (21:00)
[2019-02-13] MEDS ORDERED: SODIUM CHLORIDE 0.9 % (FLUSH) 10 ML DISP.SYRIN IV SCH (21:00)
[2019-02-13] MEDS ORDERED: traZODone HCL 50 MG TABLET PO SCH (22:00)
[2019-02-14] MEDS ORDERED: ACETAMINOPHEN 500 MG TABLET PO PRN (07:15)
--- NOTE | 2019-02-14 08:05 | Discharge Summary ---
Discharge Summary - Discharge [facility] Admission Date: 02/13/19 Discharge Date: 02/14/19 Discharge To: Home History of Present Illness: 83-year-old white female who stated over the last several weeks she is been having increasing blood pressure problems. Patient stated she is been having pain in the temporal area of her forehead from time to time. When she had checked her blood pressure at home it is been running 180-120/90's-100. Patient has been having some intermittent chest pain during that time. Patient states the pain does not seem to be precipitated or modified by any factors. Pain usually lasted just seconds and then dissipates. Patient denies any diaphoresis her shortness of breath associated with it. Patient stated she has been taking her metoprolol as prescribed. Patient also states she is been having some slight blurred vision from time to time. Is not sure if his associated with the elevated blood pressure or not. Patient stated she had not been feeling well and does feel weak. patient will be admitted to the hospital for further control her blood pressure. Will go ahead and get an EKG and troponin to check for possible coronary artery disease ischemia. Condition at Discharge: Stable Home Medications: Ambulatory Orders Medication Instructions Recorded Aspirin [Jesus] 81 mg PO DAILY 02/13/19 Cholecalciferol (Vitamin D3) 5,000 unit PO DAILY 02/13/19 [Vitamin D3] Trazodone HCl 50 mg PO HS 02/13/19 Acetaminophen [Tylenol Extra 500 mg PO TID PRN tablet 02/14/19 Strength] hydroCHLOROthiazide [Hydrodiuril] 25 mg PO DAILY #30 tablet 02/14/19 Consultations this Visit: None Procedures this Visit: None Allergies/Adverse Reactions: Allergies Allergy/AdvReac Type Severity Reaction Status Date / Time gabapentin Allergy Mild Verified 05/08/17 19:23 ciprofloxacin HCl Allergy Verified 05/08/17 19:23 [From Cipro] divalproex sodium Allergy Verified 05/08/17 19:23 [From Depakote] erythromycin base Allergy Verified 05/08/17 19:23 [Erythromycin Base] infliximab [From Remicade] Allergy Verified 05/08/17 19:23 methotrexate Allergy Verified 05/08/17 19:23 metronidazole [From Flagyl] Allergy Verified 05/08/17 19:23 milnacipran HCl Allergy Verified 05/08/17 19:23 [From Savella] naproxen sodium [From Aleve] Allergy Verified 05/08/17 19:23 omeprazole [From Prilosec] Allergy Verified 05/08/17 19:23 Penicillins Allergy Verified 05/08/17 19:23 ranitidine HCl [From Zantac] Allergy Verified 05/08/17 19:23 sertraline Allergy Verified 02/13/19 22:14 valproic acid Allergy Verified 05/08/17 19:23 Discharge Summary: Patient was admitted from the clinic with severely elevated BP and headache. HCTZ 25 mg added to metoprolol and BP came down to 120/70. Patient feeling better. Tele NSR. She was discharged in good condition. Labs normal, including EKG and Trop I. Normal neuro exams. Hospital Course: Discharge Dx: HTN - accelrated. OVIEDO
[2019-02-14] MEDS: hydroCHLOROthiazide 25 MG TABLET PO SCH (08:42)
[2019-02-14 08:55] VITALS: BP 137/64
[2019-02-14] MEDS ORDERED: METOPROLOL SUCCINATE 50 MG TAB.ER.24H PO SCH (09:00)
[2019-02-14] MEDS ORDERED: MELOXICAM 15 MG TABLET PO SCH (09:00)
[2019-02-14] MEDS ORDERED: FLU VACC QUAD 2019-20/PF 60 MCG/0.5 ML SYRINGE IM ONE (10:00)
[2019-02-14] MEDS ORDERED: ATORVASTATIN CALCIUM 20 MG TABLET PO SCH (18:00)
--- NOTE | 2019-02-15 14:21 | Diagnostic Imaging Report ---
GRANT GRAJEDA [facility] [address] [facility].[address] [address] Report Submission Date: Feb 13, 2019 8:07:37 PM CDT Patient Study Name: SISI MARTINEZ Date: Feb 13, 2019 7:27:37 PM CDT Modality Type: DX Gender: F Description: CHEST 2VIEW : 31 Institution: [facility] Physician: GRANT GRAJEDA Chest two views History: Hypertension Findings: The lungs are hyperinflated without infiltrate, pleural effusion, or pneumothorax. Calcified granulomas, aortic atherosclerosis, and thoracolumbar scoliosis are present. Electronically signed on Feb 13, 2019 8:07:37 PM CDT by: Tavon ABRAMS
== END 2019-02-14 10:05 | disposition home or self-care (01) ==
LOC: SOUTH 15:51
PROVIDERS: ADMIT Family Medicine; ATTEND Family Medicine
DX: I25.10 Atherosclerotic heart disease of native coronary artery without angina pectoris (principal); I10 Essential (primary) hypertension
CPT/HCPCS: 36415; 71046; 80053; 84484; 85025; 99218; J3490; G0378; G0379; S1016

== ENCOUNTER 2019-02-23 12:02 | Outpatient (CLI) | payer MEDICARE, OTHER ==
[2019-02-23 12:45] LABS: eGFR (Non-African) 42
[2019-05-16 17:56] VITALS: BP 139/53
== END 2019-02-23 12:04 ==
LOC: LABRHC 12:02
PROVIDERS: ATTEND Family Medicine
DX: I10 Essential (primary) hypertension (principal)
CPT/HCPCS: 36415; 80048

== ENCOUNTER 2019-05-19 07:06 | Inpatient (IN) | payer MEDICARE, OTHER ==
[2019-05-19] MEDS ORDERED: ACETAMINOPHEN 500 MG TABLET PO PRN (08:01)
[2019-05-19 08:14] VITALS: BMI 20.5
[2019-05-19] MEDS ORDERED: CHOLECALCIFEROL 5000 UNIT PO SCH (09:00)
[2019-05-19] MEDS ORDERED: DICYCLOMINE HCL 20 MG TABLET PO PRN (09:00)
[2019-05-19] MEDS ORDERED: CHOLECALCIFEROL (VIT-D3) 1,000 UNIT TABLET PO ONE (09:02)
[2019-05-19] MEDS: METOPROLOL SUCCINATE 50 MG TAB.ER.24H PO SCH (09:15)
[2019-05-19] MEDS: ASPIRIN 81 MG CHEW TAB PO SCH (09:15)
[2019-05-19] MEDS: ATORVASTATIN CALCIUM 20 MG TABLET PO SCH (09:15)
[2019-05-19] MEDS: ENOXAPARIN SODIUM 40 MG/0.4 ML DISP.SYRIN SQ SCH (09:15)
[2019-05-19] MEDS: MELOXICAM 15 MG TABLET PO SCH (09:16)
[2019-05-19] MEDS: hydroCHLOROthiazide 25 MG TABLET PO SCH (09:16)
[2019-05-19] MEDS: traZODone HCL 50 MG TABLET PO PRN (20:48)
[2019-05-19] MEDS: TOPIRAMATE 50 MG TABLET PO SCH (20:49)
[2019-05-19] MEDS: cefTRIAXone SODIUM 1 GM in 0.9 % SODIUM CHLORIDE 50 ML IV SCH (20:50)
[2019-05-19] MEDS ORDERED: MIRTAZAPINE 15 MG TABLET PO SCH (21:00)
[2019-05-20] MEDS: hydroCHLOROthiazide 25 MG TABLET PO SCH (09:19)
[2019-05-20] MEDS: METOPROLOL SUCCINATE 50 MG TAB.ER.24H PO SCH (09:19)
[2019-05-20] MEDS: ENOXAPARIN SODIUM 40 MG/0.4 ML DISP.SYRIN SQ SCH ×2 (09:19→10:11)
[2019-05-20] MEDS: ATORVASTATIN CALCIUM 20 MG TABLET PO SCH ×2 (09:19→10:12)
[2019-05-20] MEDS: ASPIRIN 81 MG CHEW TAB PO SCH (09:19)
[2019-05-20] MEDS: MELOXICAM 15 MG TABLET PO SCH ×2 (09:19→10:12)
[2019-05-20] MEDS: CHOLECALCIFEROL (VIT-D3) 1,000 UNIT TABLET PO SCH ×2 (09:20→10:13)
[2019-05-20] MEDS: cefTRIAXone SODIUM 1 GM in 0.9 % SODIUM CHLORIDE 50 ML IV SCH (09:57)
[2019-05-20] MEDS: SULFAMETHOXAZOLE/TRIMETHOPRIM 800/160MG TAB PO SCH ×2 (21:02→22:51)
[2019-05-20] MEDS: TOPIRAMATE 50 MG TABLET PO SCH ×2 (21:02→22:50)
[2019-05-20] MEDS: traZODone HCL 50 MG TABLET PO PRN (22:51)
[2019-05-21] MEDS: hydroCHLOROthiazide 25 MG TABLET PO SCH (08:40)
[2019-05-21] MEDS: ASPIRIN 81 MG CHEW TAB PO SCH (08:40)
[2019-05-21] MEDS: METOPROLOL SUCCINATE 50 MG TAB.ER.24H PO SCH (08:40)
[2019-05-21] MEDS: SULFAMETHOXAZOLE/TRIMETHOPRIM 800/160MG TAB PO SCH (08:40)
[2019-05-21] MEDS ORDERED: POLYETHYLENE GLYCOL 3350 17 GM POWD.PACK PO SCH (11:00)
--- NOTE | 2019-05-21 12:13 | Diagnostic Imaging Report ---
PATIENT MR#: [id number] PATIENT PATIENT NAME: SISI MARTINEZ DATE OF : 1935 REFERRING PHYSICIAN: Angélica Dang EXAM DATE: 05/21/2019 ACCESSION NUMBER: [id number] EXAM DESCRIPTION: CT BRAIN W/O CONTRAST ADDENDUM: Exam: CT brain without contrast. History: Mental status change. Axial images through the brain are submitted along with sagittal and coronal reformatted images. The surrounding cisterns and 4th ventricle are prominent. The brainstem and cerebellum are of normal attenuation. In the supratentorial region there is a wedge-like area of encephalomalacia noted in the left frontal lo be suggestive of old infarct. The lateral ventricles and surrounding sulci are prominent. No acute hemorrhage is see n. More confluent areas of diminished attenuation adjacent to the lateral ventricles indicate small vessel disease. No extra-axial fluid collections are identified. No bony abnormalities are identified. Impression: Atrophy. Small vessel disease. Old left frontal lobe infarct Exam: CT brain without contrast. History: Mental status change. Axial images through the brain are submitted along with sagittal and coronal reformatted images. The surrounding cisterns and 4th ventricle are prominent. The brainstem and cerebellum are of normal attenuation. In the supratentorial region there is a wedge-like area of encephalomalacia noted in the left frontal lo be suggestive of old infarct. The lateral ventricles and surrounding sulci are prominent. No acute hemorrhage is see n. More confluent areas of diminished attenuation adjacent to the lateral ventricles indicate small vessel disease. No extra-axial fluid collections are identified. No bony abnormalities are identified. Impression: Atrophy. Small vessel disease. Old left frontal lobe infarct Read by: Dr. Daren Maxwell Transcribed by: Transcribed Date: Electronically signed by: Dr. Daren Maxwell Date signed: 05/21/2019 12:52:50 PM
[2019-05-21 12:18] LABS: BASOPHILS % 0.3 % (0.0-1.5)
[2019-05-21 12:19] LABS: NEUTROPHILS # 6.9 # k/uL (1.4-7.7)
[2019-05-21 12:32] LABS: eGFR (Non-African) > 60
--- NOTE | 2019-05-21 14:36 | Discharge Summary ---
Discharge Summary - Discharge [place] Admission Date: 05/19/19 Discharge Date: 05/21/19 Discharge To: Other ([facility] History of Present Illness: Patient will be admitted to SNF after her Acute stay for UTI (pansensitive Klebsiella - treated with rocephin) and dehydration. Due to weakness will admit for therapies. Condition at Discharge: Stable Home Medications: Ambulatory Orders Medication Instructions Recorded Aspirin [Jesus] 81 mg PO DAILY 02/13/19 Cholecalciferol (Vitamin D3) 5,000 unit PO DAILY 02/13/19 [Vitamin D3] Trazodone HCl 50 mg PO HS 02/13/19 Acetaminophen [Tylenol Extra 500 mg PO TID PRN tablet 02/14/19 Strength] hydroCHLOROthiazide [Hydrodiuril] 25 mg PO DAILY #30 tablet 02/14/19 Consultations this Visit: None Procedures this Visit: None Allergies/Adverse Reactions: Allergies Allergy/AdvReac Type Severity Reaction Status Date / Time gabapentin Allergy Mild Verified 05/16/19 13:56 ciprofloxacin HCl Allergy Verified 05/16/19 13:56 [From Cipro] divalproex sodium Allergy Verified 05/16/19 13:56 [From Depakote] erythromycin base Allergy Verified 05/16/19 13:56 [Erythromycin Base] infliximab [From Remicade] Allergy Verified 05/16/19 13:56 methotrexate Allergy Verified 05/16/19 13:56 metronidazole [From Flagyl] Allergy Verified 05/16/19 13:56 milnacipran HCl Allergy Verified 05/16/19 13:56 [From Savella] naproxen sodium [From Aleve] Allergy Verified 05/16/19 13:56 omeprazole [From Prilosec] Allergy Verified 05/16/19 13:56 Penicillins Allergy Verified 05/16/19 13:56 ranitidine HCl [From Zantac] Allergy Verified 05/16/19 13:56 sertraline Allergy Verified 05/16/19 13:56 valproic acid Allergy Verified 05/16/19 13:56 Discharge Summary: Patient was admitted to SNF from Acute stay for dehydration and UTI. During her Acute stay she was started on remeron for depression/anorexia/insomnia at 7.5 mg. It did make her sleepy the next day. On the 2nd day, she was more belligerent and paranoid - wouldn't take meds because she thought we were "tr partha to hurt her." I held several meds at that time including lipitor, Vit. D to try make it less complicated, which helped. Later that day her urine culture came back so she was switched from rocephin to bactrim. Today patient is having "spells" of unresponsiveness. She withdraws to pain during these episodes. One happened while walking with therapy, and she lowered herself to the floor. 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 CMP, CBC, CT head showed no new findings. Sometimes when she is lucid and talking to staff, her words are out of context. Family worried about CVA and desire transfer to higher level care. She will be sent to the [place]. Hospital Course: Discharge Dx - Mental Status Changes. h/o CVA. HTN. Depression
[2019-05-21 17:43] VITALS: BP 167/86
--- NOTE | 2019-06-08 14:51 | History and Physical Report ---
History of Present Illnes - History of Present Illness History of Present Illness: ACUTE ADMISSION H&P FROM 05-16-19 WILL BE USED FOR SNF IT IS UP TO DATE. 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: CVA (see HPI), Migraine, Other (Tremor) Rheumatologic: Rheumatoid arthritis - Past Surgical History Past Surgical History: None - Past Social History Smoke: No Occupation: retired Alcohol: None Drugs: None Lives: With Family ( in [facility]) Domestic Violence: Negative - Health Maintenance Health Maintenance: Influenza Vaccine, Pneumococcal Vaccine, Mammogram, Other (zostavax) Resuscitation Status: Resusciation Status Resuscitation Status Full Code Review of Systems - Medications/Allergies Allergies/Adverse Reactions: Allergies Allergy/AdvReac Type Severity Reaction Status Date / Time gabapentin Allergy Mild Verified 05/16/19 13:56 ciprofloxacin HCl Allergy Verified 05/16/19 13:56 [From Cipro] divalproex sodium Allergy Verified 05/16/19 13:56 [From Depakote] erythromycin base Allergy Verified 05/16/19 13:56 [Erythromycin Base] infliximab [From Remicade] Allergy Verified 05/16/19 13:56 methotrexate Allergy Verified 05/16/19 13:56 metronidazole [From Flagyl] Allergy Verified 05/16/19 13:56 milnacipran HCl Allergy Verified 05/16/19 13:56 [From Savella] naproxen sodium [From Aleve] Allergy Verified 05/16/19 13:56 omeprazole [From Prilosec] Allergy Verified 05/16/19 13:56 Penicillins Allergy Verified 05/16/19 13:56 ranitidine HCl [From Zantac] Allergy Verified 05/16/19 13:56 sertraline Allergy Verified 05/16/19 13:56 valproic acid Allergy Verified 05/16/19 13:56 Exam - Laboratory Results Laboratory Results: Laboratory Results 05/21/19 05/21/19 12:00 12:00 WBC 9.80 RBC 3.53 L Hgb 11.8 Hct 34.8 MCV 99.0 MCH 33.5 MCHC 33.9 RDW 10.9 L Plt Count 264 Neut % (Auto) 70.6 Lymph % (Auto) 18.0 [place] % (Auto) 9.1 Eos % (Auto) 2.0 Baso % (Auto) 0.3 Neut # (Auto) 6.9 Lymph # (Auto) 1.8 [place] # (Auto) 0.9 Eos # (Auto) 0.2 Baso # (Auto) 0.0 Sodium 140 Potassium 3.5 Chloride 102 Carbon Dioxide 24 Anion Gap 17.5 BUN 30 H Creatinine 1.15 H Estimated Creat Clear 33 Est GFR ( Amer) > 60 Est GFR (Non-Af Amer) > 60 Glucose 85 Calcium 10.0 Total Bilirubin 0.4 AST 27 ALT 21 Alkaline Phosphatase 52 Total Protein 8.0 Albumin 4.6
--- NOTE | 2019-06-10 16:05 | Inpatient Progress Note ---
Subjective - Required Recertification Statement I anticipate X number of days because-include discharge plan: 14 - Review of Systems Subjective: Admission History and Physical from Acute Admission is unchanged and will be used for SNF. Objective - Exam Vitals and I&O: Vital Signs Temp 98.6 F 05/21/19 14:34 Pulse 91 H 05/21/19 14:34 Resp 18 05/21/19 14:34 BP 167/86 05/21/19 14:34 Pulse Ox 100 05/21/19 14:34 - Results Results: Laboratory Results WBC 9.80 K/ul (4.00-12.00) 05/21/19 12:00 RBC 3.53 M/ul (3.90-5.20) L 05/21/19 12:00 Hgb 11.8 g/dL (11.5-16.0) 05/21/19 12:00 Hct 34.8 % (34.5-46.5) 05/21/19 12:00 MCV 99.0 fl (80.0-100.0) 05/21/19 12:00 MCH 33.5 pg (28.0-34.0) 05/21/19 12:00 MCHC 33.9 g/dL (30.0-36.0) 05/21/19 12:00 RDW 10.9 % (11.3-14.3) L 05/21/19 12:00 Plt Count 264 K/mm3 (130-400) 05/21/19 12:00 Neut % (Auto) 70.6 % (39.0-79.0) 05/21/19 12:00 Lymph % (Auto) 18.0 % (16.0-50.0) 05/21/19 12:00 [place] % (Auto) 9.1 % (0.0-11.0) 05/21/19 12:00 Eos % (Auto) 2.0 % (0.0-6.8) 05/21/19 12:00 Baso % (Auto) 0.3 % (0.0-1.5) 05/21/19 12:00 Neut # (Auto) 6.9 # k/uL (1.4-7.7) 05/21/19 12:00 Lymph # (Auto) 1.8 # k/uL (0.6-4.0) 05/21/19 12:00 [place] # (Auto) 0.9 # k/uL (0.0-0.9) 05/21/19 12:00 Eos # (Auto) 0.2 # k/uL (0.0-0.6) 05/21/19 12:00 Baso # (Auto) 0.0 # k/uL (0.0-0.5) 05/21/19 12:00 Sodium 140 mmol/L (137-145) 05/21/19 12:00 Potassium 3.5 mmol/L (3.5-5.1) 05/21/19 12:00 Chloride 102 mmol/L (98-107) 05/21/19 12:00 Carbon Dioxide 24 mmol/L (22-30) 05/21/19 12:00 Anion Gap 17.5 05/21/19 12:00 BUN 30 mg/dL (7-17) H 05/21/19 12:00 Creatinine 1.15 mg/dL (0.52-1.04) H 05/21/19 12:00 Estimated Creat Clear 33 05/21/19 12:00 Est GFR ( Amer) > 60 (60-) 05/21/19 12:00 Est GFR (Non-Af Amer) > 60 (60-) 05/21/19 12:00 Glucose 85 mg/dL (74-106) 05/21/19 12:00 Calcium 10.0 mg/dL (8.4-10.2) 05/21/19 12:00 Total Bilirubin 0.4 mg/dL (0.2-1.3) 05/21/19 12:00 AST 27 U/L (15-46) 05/21/19 12:00 ALT 21 U/L (4-35) 05/21/19 12:00 Alkaline Phosphatase 52 U/L (38-126) 05/21/19 12:00 Total Protein 8.0 g/dL (6.3-8.2) 05/21/19 12:00 Albumin 4.6 g/dL (3.5-5.0) 05/21/19 12:00
--- NOTE | 2019-06-11 11:07 | History and Physical Report ---
History of Present Illnes - Past Medical History Cardiac: CAD, HTN, PR, Hyperlipidemia, Other (LBBB) [employer]: CVA (see HPI), Migraine, Other (Tremor) Rheumatologic: Rheumatoid arthritis - Past Surgical History Past Surgical History: None - Past Social History Smoke: No Occupation: retired Alcohol: None Drugs: None Lives: With Family ( in [place]) Domestic Violence: Negative - Health Maintenance Health Maintenance: Influenza Vaccine, Pneumococcal Vaccine, Mammogram, Other (zostavax) Resuscitation Status: Resusciation Status Resuscitation Status Full Code Review of Systems - Medications/Allergies Allergies/Adverse Reactions: Allergies Allergy/AdvReac Type Severity Reaction Status Date / Time gabapentin Allergy Mild Verified 05/16/19 13:56 ciprofloxacin HCl Allergy Verified 05/16/19 13:56 [From Cipro] divalproex sodium Allergy Verified 05/16/19 13:56 [From Depakote] erythromycin base Allergy Verified 05/16/19 13:56 [Erythromycin Base] infliximab [From Remicade] Allergy Verified 05/16/19 13:56 methotrexate Allergy Verified 05/16/19 13:56 metronidazole [From Flagyl] Allergy Verified 05/16/19 13:56 milnacipran HCl Allergy Verified 05/16/19 13:56 [From Savella] naproxen sodium [From Aleve] Allergy Verified 05/16/19 13:56 omeprazole [From Prilosec] Allergy Verified 05/16/19 13:56 Penicillins Allergy Verified 05/16/19 13:56 ranitidine HCl [From Zantac] Allergy Verified 05/16/19 13:56 sertraline Allergy Verified 05/16/19 13:56 valproic acid Allergy Verified 05/16/19 13:56 Exam - Laboratory Results Laboratory Results: Laboratory Results 05/21/19 05/21/19 12:00 12:00 WBC 9.80 RBC 3.53 L Hgb 11.8 Hct 34.8 MCV 99.0 MCH 33.5 MCHC 33.9 RDW 10.9 L Plt Count 264 Neut % (Auto) 70.6 Lymph % (Auto) 18.0 [place] % (Auto) 9.1 Eos % (Auto) 2.0 Baso % (Auto) 0.3 Neut # (Auto) 6.9 Lymph # (Auto) 1.8 [place] # (Auto) 0.9 Eos # (Auto) 0.2 Baso # (Auto) 0.0 Sodium 140 Potassium 3.5 Chloride 102 Carbon Dioxide 24 Anion Gap 17.5 BUN 30 H Creatinine 1.15 H Estimated Creat Clear 33 Est GFR ( Amer) > 60 Est GFR (Non-Af Amer) > 60 Glucose 85 Calcium 10.0 Total Bilirubin 0.4 AST 27 ALT 21 Alkaline Phosphatase 52 Total Protein 8.0 Albumin 4.6
== END 2019-05-21 17:35 | disposition short-term general hospital (02) | DRG 948 ==
LOC: SOUTH 07:06
PROVIDERS: ADMIT Family Medicine; ATTEND Family Medicine
DX: R53.1 Weakness (principal); N39.0 Urinary tract infection, site not specified; F32.9 Major depressive disorder, single episode, unspecified; G47.00 Insomnia, unspecified; I10 Essential (primary) hypertension; R41.82 Altered mental status, unspecified; Z79.899 Other long term (current) drug therapy; Z79.82 Long term (current) use of aspirin; Z88.1 Allergy status to other antibiotic agents; Z88.0 Allergy status to penicillin; Z88.8 Allergy status to other drugs, medicaments and biological substances; Z86.73 Personal history of transient ischemic attack (TIA), and cerebral infarction without residual deficits
CPT/HCPCS: 36415; 70450; 80053; 85025; J0696; J1650; J3490; A9270